=== PATIENT | female | born 1950 | race American Indian/Alaskan Native ===

== ENCOUNTER 2016-09-22 14:25 | Outpatient (CLI) | payer BC ==
--- NOTE | 2016-09-22 15:18 | Mammography Report ---
LEFT DIGITAL DIAGNOSTIC MAMMOGRAM : 09/22/16 14:25:00 CLINICAL: Recalled for asymmetry. COMPARISON:09/10/16 screening FINDINGS: ML and spot compression MLO views were obtained. Satisfactory effacement of the previously described asymmetry on the spot views. No suspicious finding on the lateral view. IMPRESSION: Negative Mammogram. BI-RADS CATEGORY: 1 -- Negative RECOMMENDATION: Routine mammographic screening in one year. ACR BI-RADS MAMMOGRAPHIC CODES: 0 = Needs additional imaging evaluation; 1 = Negative; 2 = Benign; 3 = Probably benign; 4 = Suspicious; 5 = Malignant; 6 = Known biopsy-proven malignancy COMMENT: 1. Dense breast tissue, i.e., adenosis, fibrocystic changes, etc., may obscure an underlying neoplasm. 2. Approximately 10% of cancers are not detected with mammography. 3. A negative mammography report should not delay biopsy if a clinically suspicious mass is present. COMMENT: Patient follow-up letters are generated via our [employer] application.
== END 2016-09-22 14:26 | disposition home or self-care (01) ==
LOC: SPVWC 14:25
PROVIDERS: ATTEND Internal Medicine
DX: R92.8 Other abnormal and inconclusive findings on diagnostic imaging of breast (principal)
CPT/HCPCS: G0206-LT

== ENCOUNTER 2017-09-22 11:58 | Outpatient (CLI) | payer BC ==
--- NOTE | 2017-09-22 16:19 | Mammography Report ---
BILATERAL DIGITAL SCREENING MAMMOGRAM with CAD : 09/22/17 11:58:00 CLINICAL: Routine screening. COMPARISON:09/10/16 FINDINGS: The breasts are heterogeneously dense, which may obscure small masses. No mass, architectural distortion or suspicious calcifications. IMPRESSION: No mammographic evidence of malignancy. BI-RADS CATEGORY: 2 -- Benign RECOMMENDATION: Routine mammographic screening in one year. COMMENT: Patient follow-up letters are generated by our [employer] application.
== END 2017-09-22 11:59 | disposition home or self-care (01) ==
LOC: SPVWC 11:58
PROVIDERS: ATTEND Internal Medicine
DX: Z12.31 Encounter for screening mammogram for malignant neoplasm of breast (principal)
CPT/HCPCS: 77067